=== PATIENT | female | born 1970 | race Caucasian/White ===

== ENCOUNTER 2016-07-28 08:59 | Emergency (ER) | payer BC ==
[2016-07-28 09:29] VITALS: BP 106/63
--- NOTE | 2016-07-28 10:04 | UC ---
Throat Pain/Nasal Dragan HPI - HPI Summary HPI Summary: NASAL CONGESTION AND COUGH X 2 DAYS NO FEVER , + CHILLS AND BODY ACHES - History of Current Complaint Chief Complaint: UCRespiratory Stated Complaint: CONGESTION,HEADACHE Time Seen by Provider: 07/28/16 09:56 Hx Obtained From: Patient Hx Last Menstrual Period: 2006 Onset/Duration: Gradual Onset, Lasting Days - 2, Still Present Severity: Moderate Cough: Nonproductive Associated Signs & Symptoms: Positive: Wheezing, Nasal Discharge. Negative: Sinus Discomfort, Fever, Rash - Allergies/Home Medications Allergies/Adverse Reactions: Allergies Allergy/AdvReac Type Severity Reaction Status Date / Time Morphine Allergy Difficulty Verified 07/28/16 09:29 Breathing Home Medications: Home Medications Citalopram TAB* [CeleXA TAB*] 20 mg PO DAILY 07/28/16 [History Confirmed ] Levothyroxine TAB* [Synthroid TAB*] 75 mcg PO DAILY 07/28/16 [History Confirmed 07/28/16] PMH/Surg Hx/FS Hx/Imm Hx - Additional Past Medical History Additional PMH: MEDS: LEVOTHYROXIN AND CITALOPRAM Endocrine History Of: Reports: Thyroid Disease - Surgical History Surgical History: Yes Surgery Procedure, Year, and Place: partial hysterectomy , uterine exploraatory before hysterectomy. mole removal from fac - Family History Known Family History: Positive: None Negative: Diabetes - Social History Alcohol Use: Occasionally Substance Use Type: None Smoking Status (MU): Current Some Day Smoker Type: Cigarettes - Immunization History Most Recent Influenza Vaccination: 2012 Review of Systems Constitutional: Chills, Fatigue Skin: Negative Eyes: Negative ENT: Nasal Discharge Respiratory: Cough Cardiovascular: Negative Gastrointestinal: Negative Genitourinary: Negative All Other Systems Reviewed And Are Negative: Yes Physical Exam Triage Information Reviewed: Yes Appearance: Well-Appearing, No Pain Distress, Well-Nourished Vital Signs: Initial Vital Signs Temp 98.3 F 07/28/16 09:22 Pulse 72 07/28/16 09:22 Resp 16 07/28/16 09:22 BP 106/63 07/28/16 09:22 Pulse Ox 98 07/28/16 09:22 Vital Signs Reviewed: Yes Eye Exam: Normal Eyes: Positive: Conjunctiva Clear ENT: Positive: Pharyngeal erythema, Nasal congestion, Nasal drainage, TMs normal Neck exam: Normal Neck: Positive: Supple, Nontender, No Lymphadenopathy Respiratory: Positive: Chest non-tender, Lungs clear, Normal breath sounds Cardiovascular: Positive: RRR, No Murmur, Pulses Normal Abdominal Exam: Normal Skin Exam: Normal Throat Pain/Nasal Course/Dx - Differential Dx/Diagnosis Provider Diagnoses: URI Discharge - Discharge Plan Condition: Stable Disposition: HOME Patient Education Materials: Upper Respiratory Infection (ED) Forms: *Work Release Referrals: Domenic Durbin MD [Primary Care Provider] - If Needed
== END 2016-07-28 10:13 | disposition home or self-care (01) ==
LOC: UCCORT 08:59
DX: J06.9 Acute upper respiratory infection, unspecified (principal); E07.9 Disorder of thyroid, unspecified; Z88.5 Allergy status to narcotic agent; Z72.0 Tobacco use
CPT/HCPCS: 99211; G0463

== ENCOUNTER 2017-09-20 10:52 | Emergency (ER) | payer BC ==
[2017-09-20 11:20] VITALS: BP 130/66
--- NOTE | 2017-09-20 12:09 | UC ---
Lower Extremity/Ankle HPI - HPI Summary HPI Summary: 47 yo female c/o progressively worse L lower leg pain. Has been camping this weekend, and on Sat (today is Mon) accidently hit leg against a step. Last evening pain and swelling increased, unable to sleep last night d/t pain. No fever / chills. Denies sob / cp / palpitations. No GI issues. Minimal drainage to wound. Tet immun utd per pt. - History of Current Complaint Chief Complaint: UCLowerExtremity Stated Complaint: LT LEG COMP Time Seen by Provider: 09/20/17 11:31 Hx Obtained From: Patient Hx Last Menstrual Period: 2006 Severity Currently: Severe Pain Intensity: 8 Pain Scale Used: 0-10 Numeric Aggravating Factor(s): Standing, Ambulation Alleviating Factor(s): Nothing - Risk Factors DVT Risk Factors: Smoking, Family Hx of Clotting Disorder - multiple 1st and 2nd degree relatives with hx blood clots - Allergies/Home Medications Allergies/Adverse Reactions: Allergies Allergy/AdvReac Type Severity Reaction Status Date / Time morphine Allergy Difficulty Verified 09/20/17 11:18 Breathing PMH/Surg Hx/FS Hx/Imm Hx - Additional Past Medical History Additional PMH: Rx'd for lymphoma approx 10 yrs ago, recently told by [facility] that she remains cancer free. Previously Healthy: Yes - see above and hpi - Surgical History Surgical History: Yes Surgery Procedure, Year, and Place: partial hysterectomy , uterine exploraatory before hysterectomy. mole removal from fac - Family History Known Family History: Positive: None Negative: Diabetes - Social History Occupation: Employed Full-time Alcohol Use: Occasionally Substance Use Type: None Smoking Status (MU): Current Some Day Smoker Type: Cigarettes - Immunization History Most Recent Influenza Vaccination: 2012 Review of Systems Constitutional: Fatigue Skin: Other - see hpi Eyes: Negative ENT: Negative Respiratory: Negative Cardiovascular: Negative Gastrointestinal: Negative Genitourinary: Negative Motor: Other - see hpi Neurovascular: Negative Musculoskeletal: Other: - see hpi Neurological: Negative Psychological: Negative Is Patient Immunocompromised?: No All Other Systems Reviewed And Are Negative: Yes Physical Exam Triage Information Reviewed: Yes Appearance: Well-Nourished - sitting up, able to ambulate by herself but slowly , looks uncomfortable Vital Signs: Initial Vital Signs Temp 98.3 F 09/20/17 11:15 Pulse 92 05/28/18 11:15 Resp 16 09/20/17 11:15 BP 130/66 09/20/17 11:15 Pulse Ox 100 09/20/17 11:15 Vital Signs Reviewed: Yes Eye Exam: Normal - grossly normal ENT Exam: Normal - grossly normal Neck exam: Normal Neck: Positive: Supple Respiratory Exam: Normal - no dyspnea, no tachypnea Cardiovascular Exam: Normal - heart rate regular. Pulses DP, PT palpable bilat. Feet both warm to touch, with good distal cap refill x 5 toes Abdominal Exam: Normal - sitting up, no complaints Musculoskeletal Exam: Other - R foot dorsal area with dark eschar and redness, warm to touch, nonfluctuant 6.5cm width x 5cm. L ant tib dark necrotic wound irregular shape approx 1.8cm L x 1.0cm W. No mikael purulence, very tender. No crepitus. + Periwound redness, warmth to touch approx 25cm L x 18cm W. The redness is streaking, as such it is irregular and not sharply demarcated. Post knees nontender. L calf is swollen, without mikael Paulino's but reports that skin hurts with post calf pressure. BLE evidence of venous insufficiency. Neurological Exam: Normal - grossly nonfocal Psychological Exam: Normal - conversing easily and appropriately Skin Exam: Other - see above musc skel. non-diaphoretic. Lower Extremity Course/Dx - Course Course Of Treatment: LLE redness and swelling s/p wounding event 2 days ago. Concern for progressive cellulitis or worse infection. No sob / cp. Strong fam hx dvt. Will benefit from ED evaluation and management, including abx and u /s. Ms. Miller reports that she will go directly to ED. Requests [facility] d/t proximity in the setting of childcare concerns. Declines EMS, will drive, will meet her there. Questions as posed answered to the best of my ability. I spoke with Crys Lauren NP [facility]. - Differential Dx/Diagnosis Provider Diagnoses: Left ant leg wound infection. Left leg cellulitis. L leg redness and swelling / edema Discharge - Sign-Out/Discharge Documenting (check all that apply): Discharge/Admit/Transfer - to [facility], via POV - Discharge Plan Condition: Guarded Disposition: TRANS HIGHER LVL OF CARE FAC Patient Education Materials: Cellulitis (ED), Leg Edema (ED) Referrals: Domenic Durbin MD [Primary Care Provider] - Additional Instructions: Go directly to the Emergency Department. I spoke with the Nurse Practitioner at the [facility]. Please call [phone] if problems en route. - Billing Disposition and Condition Condition: GUARDED Disposition: EMTALA
== END 2017-09-20 12:00 | disposition short-term general hospital (02) ==
LOC: UCCORT 10:52
DX: S81.802A Unspecified open wound, left lower leg, initial encounter (principal); L08.9 Local infection of the skin and subcutaneous tissue, unspecified; L03.116 Cellulitis of left lower limb; W22.09XA Striking against other stationary object, initial encounter; Y93.9 Activity, unspecified; Y92.833 Campsite as the place of occurrence of the external cause; Z83.2 Family history of diseases of the blood and blood-forming organs and certain disorders involving the immune mechanism; Z88.5 Allergy status to narcotic agent; F17.210 Nicotine dependence, cigarettes, uncomplicated
CPT/HCPCS: 99212; G0463

== ENCOUNTER 2018-06-09 07:33 | Emergency (ER) | payer BC ==
[2018-06-09 07:47] VITALS: BP 115/70
--- NOTE | 2018-06-09 08:20 | UC ---
Eye Complaint HPI - HPI Summary HPI Summary: 2 days of eye discharge left greater than right, with injected eye. Normal vision. Has mild headache and sore throat today, but no fever or cough. - History of Current Complaint Chief Complaint: UCEye Stated Complaint: LEFT EYE CONCERN Time Seen by Provider: 06/09/18 08:10 Hx Obtained From: Patient Hx Last Menstrual Period: 2006 Onset/Duration: Sudden Onset, Lasting Days - 2 Timing: Constant Severity Initially: Mild Severity Currently: Mild Pain Intensity: 0 Aggravating Factor(s): Nothing Alleviating Factor(s): Nothing Associated Signs And Symptoms: Positive: Drainage (Purulent) - Risk Factors Penetrating Injury Risk Factor: Negative Globe Rupture Risk Factors: Negative Optic Artery Occlusion Risk Factors: Negative - Allergies/Home Medications Allergies/Adverse Reactions: Allergies Allergy/AdvReac Type Severity Reaction Status Date / Time morphine Allergy Difficulty Verified 06/09/18 07:42 Breathing PMH/Surg Hx/FS Hx/Imm Hx Previously Healthy: Yes - History of lymphoma in 2007, cured Endocrine History: Hypothyroidism Psychological History: Depression - Surgical History Surgical History: Yes Surgery Procedure, Year, and Place: partial hysterectomy , uterine exploraatory before hysterectomy. mole removal from fac - Family History Known Family History: Positive: Cardiac Disease, Diabetes - mother - Social History Occupation: Employed Full-time Alcohol Use: Occasionally Substance Use Type: None Smoking Status (MU): Light Every Day Tobacco Smoker Type: Cigarettes Amount Used/How Often: 1/2 PPD - Immunization History Most Recent Influenza Vaccination: 2012 Review of Systems All Other Systems Reviewed And Are Negative: Yes Constitutional: Positive: Negative Skin: Positive: Negative Eyes: Positive: Drainage, Eye Redness ENT: Positive: Nasal Discharge Respiratory: Positive: Negative Cardiovascular: Positive: Negative Gastrointestinal: Positive: Negative Genitourinary: Positive: Negative Motor: Positive: Negative Neurovascular: Positive: Negative Musculoskeletal: Positive: Negative Neurological: Positive: Headache Psychological: Positive: Negative Is Patient Immunocompromised?: No Physical Exam Triage Information Reviewed: Yes Appearance: Well-Appearing, No Pain Distress Vital Signs: Initial Vital Signs Temp 98.0 F 06/09/18 07:42 Pulse 100 06/09/18 07:42 Resp 16 06/09/18 07:42 BP 115/70 06/09/18 07:42 Pulse Ox 98 06/09/18 07:42 Eye Exam: Other - no photophobia, no lid swelling Eyes: Positive: Conjunctiva Inflamed, Discharge - scant discharge both eyes ENT: Positive: Pharyngeal erythema, TMs normal Neck: Positive: Supple, Nontender, No Lymphadenopathy Respiratory: Positive: Lungs clear, Normal breath sounds Cardiovascular: Positive: RRR, No Murmur Neurological Exam: Normal Neurological: Positive: Alert Psychological Exam: Normal Skin Exam: Normal Eye Complaint Course/Dx - Course Course Of Treatment: antibacterial drops for conjunctivitis - Differential Dx/Diagnosis Differential Diagnosis/HQI/PQRI: Conjunctivitis Provider Diagnosis: Bilateral conjunctivitis Discharge - Sign-Out/Discharge Documenting (check all that apply): Patient Departure All imaging exams completed and their final reports reviewed: No Studies - Discharge Plan Condition: Stable Disposition: HOME Prescriptions: Polymyx/Trimethoprim OPTH* [Polytrim OPHTH*] 2 drop BOTH EYES Q3H #1 btl Patient Education Materials: Conjunctivitis (ED) Forms: *Work Release Referrals: Domenic Durbin MD [Primary Care Provider] - Additional Instructions: Compress your eyes with a warm moist cloth, then use drops to both eyes every 3 hours while awake until resolved, usually 4 or 5 days. Disocontinue drops if they cause any eye irritation and follow up with your primary doctor. - Billing Disposition and Condition Condition: STABLE Disposition: Home
== END 2018-06-09 08:33 | disposition home or self-care (01) ==
LOC: UCCORT 07:33
DX: H10.9 Unspecified conjunctivitis (principal); R51 Headache; J02.9 Acute pharyngitis, unspecified; F17.210 Nicotine dependence, cigarettes, uncomplicated; Z88.5 Allergy status to narcotic agent
CPT/HCPCS: 99212; G0463

== ENCOUNTER 2019-06-13 08:34 | Emergency (ER) | payer BC ==
[2019-06-13 08:47] VITALS: BP 122/70
--- NOTE | 2019-06-13 08:54 | UC ---
Respiratory Complaint HPI - HPI Summary HPI Summary: cough x 4 days cough is productive with yellow/ green sputum worse with deep breathing, better with rest, sore throat, pnd, fever / chills and body aches - History of Current Complaint Chief Complaint: UCGeneralIllness Stated Complaint: SORE THROAT, CONGESTION Time Seen by Provider: 06/13/19 08:47 Hx Obtained From: Patient Hx Last Menstrual Period: 2006 ?: No Onset/Duration: Gradual Onset, Lasting Days - 4, Still Present Timing: Constant Severity Initially: Moderate Severity Currently: Moderate Pain Intensity: 3 Character: Cough: Productive Aggravating Factors: Exertion, Deep Breaths Alleviating Factors: Nothing Associated Signs And Symptoms: Positive: Fever, Chills, URI, Nasal Congestion. Negative: Dyspnea, Wheezing, Calf Pain - Allergies/Home Medications Allergies/Adverse Reactions: Allergies Allergy/AdvReac Type Severity Reaction Status Date / Time morphine Allergy Difficulty Verified 06/13/19 08:47 Breathing Home Medications: Home Medications Diphenhydra/Phenyleph/Acetamin [Cold & Flu Relief Multi-Sym Lq] 180 ml PO ONCE PRN 06/13/19 [History Confirmed 06/13/19] PMH/Surg Hx/FS Hx/Imm Hx - Additional Past Medical History Additional PMH: Non hodgkins lymphoma- 2008-cured - Surgical History Surgical History: Yes Surgery Procedure, Year, and Place: partial hysterectomy , uterine exploraatory before hysterectomy. mole removal from fac - Family History Known Family History: Positive: None, Cardiac Disease, Diabetes - mother - Social History Alcohol Use: Occasionally Substance Use Type: None Smoking Status (MU): Light Every Day Tobacco Smoker Type: Cigarettes Amount Used/How Often: 1/2 PPD Length of Time of Smoking/Using Tobacco: 30 yr Have You Smoked in the Last Year: Yes - Immunization History Most Recent Influenza Vaccination: 2012 Review of Systems All Other Systems Reviewed And Are Negative: Yes Constitutional: Positive: Fever, Chills, Fatigue ENT: Positive: Sore Throat Respiratory: Positive: Cough Musculoskeletal: Positive: Arthralgia, Myalgia Is Patient Immunocompromised?: No Physical Exam Triage Information Reviewed: Yes Appearance: Well-Appearing, No Pain Distress, Well-Nourished Vital Signs: Initial Vital Signs Temp 97.1 F 06/13/19 08:40 Pulse 94 06/13/19 08:40 Resp 18 06/13/19 08:40 BP 122/70 02/18/20 08:40 Pulse Ox 97 06/13/19 08:40 Vital Signs Reviewed: Yes Eye Exam: Normal Eyes: Positive: Conjunctiva Clear ENT: Positive: Normal ENT inspection, Hearing grossly normal, Pharyngeal erythema, TMs normal. Negative: TM bulging, TM dull, TM red Neck exam: Normal Neck: Positive: Supple, Nontender, No Lymphadenopathy Respiratory: Positive: Chest non-tender, Lungs clear, Normal breath sounds Cardiovascular: Positive: RRR, No Murmur, Pulses Normal Respiratory Course/Dx - Differential Dx/Diagnosis Provider Diagnosis: URI (upper respiratory infection) Discharge ED - Sign-Out/Discharge Documenting (check all that apply): Patient Departure All imaging exams completed and their final reports reviewed: No Studies - Discharge Plan Condition: Stable Disposition: HOME Patient Education Materials: Upper Respiratory Infection (ED) Referrals: Domenic Durbin MD [Primary Care Provider] - If Needed - Billing Disposition and Condition Condition: STABLE Disposition: Home
[2019-06-13 09:09] LABS: Influenza A Molecular Negative (Negative); Influenza B Molecular Negative (Negative)
== END 2019-06-13 09:16 | disposition home or self-care (01) ==
LOC: UCCORT 08:34
DX: J06.9 Acute upper respiratory infection, unspecified (principal); F17.210 Nicotine dependence, cigarettes, uncomplicated; Z88.5 Allergy status to narcotic agent; Z85.72 Personal history of non-Hodgkin lymphomas
CPT/HCPCS: 99211; G0463

== ENCOUNTER 2019-07-06 08:24 | Emergency (ER) | payer BC ==
[2019-07-06 08:40] VITALS: BP 124/70
[2019-07-06 08:57] LABS: Influenza A Molecular Negative (Negative); Influenza B Molecular Negative (Negative)
--- NOTE | 2019-07-06 08:58 | UC ---
FLU HPI - HPI Summary HPI Summary: 49 yo, awoke today with myalgias, headache, malaise, mild cough. Has not taken antipyretic. She is concerned that she has the flu. No hx of pneumona or asthma. - History of Current Complaint Chief Complaint: UCGeneralIllness Stated Complaint: FLU SYMP Time Seen by Provider: 07/06/19 08:52 Hx Obtained From: Patient Hx Last Menstrual Period: 2006 Onset/Duration: Sudden Onset, Lasting Hours Severity Currently: Mild Severity Initially: Mild Pain Intensity: 0 Associated Signs & Symptoms: Positive: Myalgia, Cough, Headache - Risk Factors Influenza Risk Factors: Negative - Allergy/Home Medications Allergies/Adverse Reactions: Allergies Allergy/AdvReac Type Severity Reaction Status Date / Time morphine Allergy Difficulty Verified 07/06/19 08:40 Breathing Home Medications: Home Medications Citalopram TAB* [CeleXA TAB*] 20 mg PO DAILY 07/28/16 [History Confirmed ] Levothyroxine TAB* [Synthroid TAB*] 75 mcg PO DAILY 07/28/16 [History Confirmed 07/06/19] Oseltamivir CAP* [Tamiflu CAP*] 75 mg PO BID #10 cap 07/06/19 [Rx] PMH/Surg Hx/FS Hx/Imm Hx Previously Healthy: Yes Endocrine History: Hypothyroidism Psychological History: Anxiety - Surgical History Surgical History: Yes Surgery Procedure, Year, and Place: partial hysterectomy , uterine exploraatory before hysterectomy. mole removal from fac - Family History Known Family History: Positive: Cardiac Disease, Diabetes - mother, Other - DVT - Social History Occupation: Employed Full-time Lives: With Family Alcohol Use: Occasionally Substance Use Type: None Smoking Status (MU): Light Every Day Tobacco Smoker Type: Cigarettes Amount Used/How Often: 1/2 PPD Length of Time of Smoking/Using Tobacco: 30 yr Have You Smoked in the Last Year: Yes - Immunization History Most Recent Influenza Vaccination: 2012 Review of Systems All Other Systems Reviewed And Are Negative: Yes Constitutional: Positive: Negative, Fatigue Skin: Positive: Negative Eyes: Positive: Negative ENT: Positive: Ear Ache Respiratory: Positive: Cough - minimal, Other - smokes cigarettes Cardiovascular: Positive: Negative Gastrointestinal: Positive: Negative Genitourinary: Positive: Negative Motor: Positive: Negative Neurovascular: Positive: Negative Musculoskeletal: Positive: Negative Neurological/Mental Status: Positive: Negative Psychological: Positive: Negative Physical Exam Triage Information Reviewed: Yes Appearance: Ill-Appearing - looks mildly unwell, Obese Vital Signs: Initial Vital Signs Temp 98.4 F 07/06/19 08:37 Pulse 96 07/06/19 08:37 Resp 17 07/06/19 08:37 BP 124/70 07/06/19 08:37 Pulse Ox 99 07/06/19 08:37 Eyes: Positive: Conjunctiva Clear ENT: Positive: Pharynx normal, TMs normal Neck: Positive: Supple, Nontender, No Lymphadenopathy Respiratory: Positive: Lungs clear, Normal breath sounds Cardiovascular: Positive: RRR, No Murmur, Pulses Normal Musculoskeletal Exam: Normal Neurological Exam: Normal Psychological Exam: Normal Skin Exam: Normal Diagnostics - Laboratory Lab Results: influenza negative. Flu Course/Dx - Course Course Of Treatment: Because of close flu contact at work, she would like to take Tamiflu, which is not unreasonable given that she has hx of smoking. - Differential Dx/Diagnosis Differential Diagnosis/HQI/PQRI: Influenza, Pneumonia, Upper Respiratory Infection Provider Diagnosis: Viral syndrome Discharge ED - Sign-Out/Discharge Documenting (check all that apply): Patient Departure All imaging exams completed and their final reports reviewed: No Studies - Discharge Plan Condition: Stable Disposition: HOME Prescriptions: Oseltamivir CAP* [Tamiflu CAP*] 75 mg PO BID #10 cap Patient Education Materials: Viral Syndrome (ED) Forms: *Work Release Referrals: Domenic Drubin MD [Primary Care Provider] - Additional Instructions: Although your flu testing is negative, you will take Tamiflu because of the exposures you have had and the onset of flu like symptoms. Rest at home, increase fluids, and use ibuprofen or tylenol for relief of muscle aches. Follow up if you have increasing shortness of breath or chest pain, but you could develop a fever despite the use of Tamiflu. - Billing Disposition and Condition Condition: STABLE Disposition: Home
== END 2019-07-06 09:21 | disposition home or self-care (01) ==
LOC: UCCORT 08:24
DX: B34.9 Viral infection, unspecified (principal); M79.10 Myalgia, unspecified site; R51 Headache; R05 Cough; E03.9 Hypothyroidism, unspecified; F17.210 Nicotine dependence, cigarettes, uncomplicated; F41.9 Anxiety disorder, unspecified; Z88.5 Allergy status to narcotic agent; Z79.890 Hormone replacement therapy; Z79.899 Other long term (current) drug therapy
CPT/HCPCS: 99212; G0463